=== PATIENT | female | born 1975 | race Caucasian/White ===

== ENCOUNTER 2019-02-25 12:02 | Inpatient (IN) | payer OTHER ==
[2019-02-25 14:26] VITALS: BMI 23.6
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
[2019-02-25] MEDS ORDERED: IBUPROFEN 400 MG TABLET (FP) PO PRN (17:03)
[2019-02-25] MEDS ORDERED: LOPERAMIDE HCL 2 MG CAPSULE PO PRN (17:03)
[2019-02-25] MEDS ORDERED: MENTHOL/PHENOL 1 EACH UD MM PRN (17:03)
[2019-02-25] MEDS ORDERED: MAGNESIUM CITRATE 300 ML BOTTLE PO PRN (17:03)
[2019-02-25] MEDS ORDERED: ACETAMINOPHEN 325 MG TABLET (FP) PO PRN (17:03)
[2019-02-25] MEDS ORDERED: P-EPHED 60MG/TRIPROLIDI 2.5MG TABLET PO PRN (17:03)
[2019-02-25] MEDS ORDERED: MAG HYDROX/AL HYDROX/SIMETH 30 ML UNIT-DOSE CUP PO PRN (17:03)
[2019-02-25] MEDS ORDERED: guaiFENesin 200 MG/10 ML 10 ML UNIT-DOSE CUPS PO PRN (17:03)
[2019-02-25] MEDS: THIAMINE HCL 100 MG TABLET (FP) PO SCH (21:25)
[2019-02-25] MEDS: hydrOXYzine PAMOATE 25 MG CAPSULE (FP) PO PRN (21:25)
[2019-02-26] MEDS: PRENATAL VITAMINS W/ FOLIC ACID TABLET (FP) PO SCH (09:40)
[2019-02-26] MEDS ORDERED: PT OWN MED DRAWER 7, Y5N ONE (11:01)
[2019-02-26 11:39] LABS: HEMATOCRIT 31.4 % (32.4-45.2); HEMOGLOBIN 10.3 GM/dL (10.7-15.3); MCH 30.6 pg (25.7-33.7); MCHC 32.8 g/dl (32.0-36.0); MEAN CELL VOLUME 93.3 fl (80-96); MEAN PLT VOLUME 8.8 fl (7.5-11.1); PLATELET COUNT 195 K/MM3 (134-434); RBC 3.36 M/mm3 (3.60-5.2); WHITE BLOOD COUNT 5.8 K/mm3 (4.0-10.0)
[2019-02-26 12:07] LABS: ALBUMIN 3.4 g/dl (3.4-5.0); BILIRUBIN,TOTAL 0.5 mg/dL (0.2-1); CALCIUM 9.1 mg/dL (8.5-10.1); CREATININE 0.5 mg/dL (0.55-1.3); POTASSIUM 4.3 mmol/L (3.5-5.1); TOT PROT 6.7 g/dl (6.4-8.2)
[2019-02-26 14:32] LABS: PH,URINE 5.5 (5.0-8.0); URINE APPEARANCE CLEAR; URINE BILIRUBIN NEGATIVE (NEGATIVE); URINE COLOR YELLOW; URINE GLUCOSE (UA) NEGATIVE (NEGATIVE); URINE KETONE NEGATIVE (NEGATIVE); URINE LEUK ESTERASE NEGATIVE (NEGATIVE); URINE NITRITE NEGATIVE (NEGATIVE); URINE PROTEIN NEGATIVE (NEGATIVE); URINE UROBILINOGEN 0.2 mg/dL (0.2-1.0)
[2019-02-26] MEDS: THIAMINE HCL 100 MG TABLET (FP) PO SCH (21:24)
[2019-02-26] MEDS: MELATONIN 5 MG TABLETS PO PRN (21:25)
[2019-02-27] MEDS: PRENATAL VITAMINS W/ FOLIC ACID TABLET (FP) PO SCH (09:38)
--- NOTE | 2019-02-27 09:45 | PN ---
[facility] Progress Note Note: Vital Signs Temperature 98.1 F 02/27/19 06:56 Pulse Rate 55 L 02/27/19 06:56 Respiratory Rate 16 02/27/19 06:56 Blood Pressure 102/69 02/27/19 06:56 O2 Sat by Pulse Oximetry (%) Laboratory Last Values WBC 5.8 K/mm3 (4.0-10.0) 02/26/19 08:55 RBC 3.36 M/mm3 (3.60-5.2) L 02/26/19 08:55 Hgb 10.3 GM/dL (10.7-15.3) L 02/26/19 08:55 Hct 31.4 % (32.4-45.2) L 02/26/19 08:55 MCV 93.3 fl (80-96) 02/26/19 08:55 MCH 30.6 pg (25.7-33.7) 02/26/19 08:55 MCHC 32.8 g/dl (32.0-36.0) 02/26/19 08:55 RDW 14.0 % (11.6-15.6) 02/26/19 08:55 Plt Count 195 K/MM3 (134-434) D 02/26/19 08:55 MPV 8.8 fl (7.5-11.1) 02/26/19 08:55 Sodium 136 mmol/L (136-145) 02/26/19 08:55 Potassium 4.3 mmol/L (3.5-5.1) 02/26/19 08:55 Chloride 104 mmol/L (98-107) 02/26/19 08:55 Carbon Dioxide 28 mmol/L (21-32) 02/26/19 08:55 Anion Gap 4 MMOL/L (8-16) L 02/26/19 08:55 BUN 13 mg/dL (7-18) 02/26/19 08:55 Creatinine 0.5 mg/dL (0.55-1.3) L 02/26/19 08:55 Est GFR (CKD-EPI)AfAm 137.39 02/26/19 08:55 Est GFR (CKD-EPI)NonAf 118.54 02/26/19 08:55 Random Glucose 82 mg/dL (74-106) 02/26/19 08:55 Calcium 9.1 mg/dL (8.5-10.1) 02/26/19 08:55 Total Bilirubin 0.5 mg/dL (0.2-1) 02/26/19 08:55 AST 16 U/L (15-37) 02/26/19 08:55 ALT 30 U/L (13-61) 02/26/19 08:55 Alkaline Phosphatase 58 U/L (45-117) 02/26/19 08:55 Total Protein 6.7 g/dl (6.4-8.2) 02/26/19 08:55 Albumin 3.4 g/dl (3.4-5.0) 02/26/19 08:55 Urine Color Yellow 02/26/19 09:30 Urine Appearance Clear 02/26/19 09:30 Urine pH 5.5 (5.0-8.0) D 02/26/19 09:30 Ur Specific [place] 1.009 (1.010-1.035) L 02/26/19 09:30 Urine Protein Negative (NEGATIVE) 02/26/19 09:30 Urine Glucose (UA) Negative (NEGATIVE) 02/26/19 09:30 Urine Ketones Negative (NEGATIVE) 02/26/19 09:30 Urine Blood Negative (NEGATIVE) 02/26/19 09:30 Urine Nitrite Negative (NEGATIVE) 02/26/19 09:30 Urine Bilirubin Negative (NEGATIVE) 02/26/19 09:30 Urine Urobilinogen 0.2 mg/dL (0.2-1.0) 02/26/19 09:30 Ur Leukocyte Esterase Negative (NEGATIVE) 02/26/19 09:30 POC Urine HCG, Qual Negative 02/25/19 08:40 RPR Titer Nonreactive (NONREACTIVE) 02/26/19 08:55 labs reviewed patient stable continue to monitor
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
[2019-02-27] MEDS: THIAMINE HCL 100 MG TABLET (FP) PO SCH (21:30)
[2019-02-27] MEDS ORDERED: SUVOREXANT 10 MG TABLET PO PRN (22:00)
[2019-02-28] MEDS: PRENATAL VITAMINS W/ FOLIC ACID TABLET (FP) PO SCH (09:42)
--- NOTE | 2019-02-28 12:59 | PN ---
[facility] Progress Note Note: NURSE JASON REPORTED TO TRANSCRIPT CLERK THAT PT EXPRESSED POSSIBILITY OF "HURTING HERSELF" TO THE NA [place] WHILE SHE MADE ROUNDS. NA REPORTS PATIENT WAS CRYING AND RESPONDED TO HER WITH THE ABOVE COMMENT. PT WAS SEEN BY TRANSCRIPT CLERK AND NURSE JASON SITTING ON A CHAIR IN ROOM. PT WAS INTERMITTENTLY SOBBING, RESTLESS AND ANXIOUS ABOUT NOT WANTING TO BE HERE BUT WANTS TO COMPLETE TREATMENT. PT WAS VERY AGITATED,RESTLESS AND ANXIOUS. PT SAYS SHE STOPPED TAKING HER LITHIUM OVER A MONTH AGO BECAUSE WAS USING DRUGS AND DOES NOT TAKE HER MEDICATIONS "WHEN USING". AND THAT SHE KNOWS WHEN SHE GETS STARTED "IT WILL TAKE TIME TO KICK IN" . "I JUST WANT TO TAKE MY MEDICATIONS". PT IS ALERT O X 3. RECANTED EXPRESSION OF HURTING HERSELF DENYING ANY DESIRE TO HURT HERSELF WHEN ASKED AGAIN BY NURSE JASON AND THIS TRANSCRIPT CLERK. PT WAS SEEN YESTERDAY BYPSYCH CONSULT, DR BECKHAM. LITHIUM LEVEL ORDERED AND DRAWN TODAY. Vital Signs - 24 hr 02/28/19 02/28/19 02/28/19 00:30 03:30 06:48 Temperature 98.4 F Pulse Rate 58 L Respiratory 16 16 18 Rate Blood Pressure 111/74 Laboratory Tests 02/25/19 02/26/19 02/26/19 08:40 08:55 08:55 WBC 5.8 RBC 3.36 L Hgb 10.3 L Hct 31.4 L MCV 93.3 MCH 30.6 MCHC 32.8 RDW 14.0 Plt Count 195 D MPV 8.8 Sodium 136 Potassium 4.3 Chloride 104 Carbon Dioxide 28 Anion Gap 4 L BUN 13 Creatinine 0.5 L Est GFR (CKD-EPI)AfAm 137.39 Est GFR (CKD-EPI)NonAf 118.54 Random Glucose 82 Calcium 9.1 Total Bilirubin 0.5 AST 16 ALT 30 Alkaline Phosphatase 58 Total Protein 6.7 Albumin 3.4 Urine Color Urine Appearance Urine pH Ur Specific [place] Urine Protein Urine Glucose (UA) Urine Ketones Urine Blood Urine Nitrite Urine Bilirubin Urine Urobilinogen Ur Leukocyte Esterase POC Urine HCG, Qual Negative RPR Titer 02/26/19 02/26/19 08:55 09:30 WBC RBC Hgb Hct MCV MCH MCHC RDW Plt Count MPV Sodium Potassium Chloride Carbon Dioxide Anion Gap BUN Creatinine Est GFR (CKD-EPI)AfAm Est GFR (CKD-EPI)NonAf Random Glucose Calcium Total Bilirubin AST ALT Alkaline Phosphatase Total Protein Albumin Urine Color Yellow Urine Appearance Clear Urine pH 5.5 D Ur Specific [place] 1.009 L Urine Protein Negative Urine Glucose (UA) Negative Urine Ketones Negative Urine Blood Negative Urine Nitrite Negative Urine Bilirubin Negative Urine Urobilinogen 0.2 Ur Leukocyte Esterase Negative POC Urine HCG, Qual RPR Titer Nonreactive LITHIUM LEVEL RESULT PENDING. PLAN:PT WILL BE ON 1:1 UNTIL PSYCH CONSULT SEES PT AND CLEARS PT. D/W PSYCH CONSULT DR. ALAN AND WILL SEE PT. ADDENDUM:PT WAS SEEN AND CLEARED BY DR. ALAN(SEE PSYCH CONSULT NOTE).
--- NOTE | 2019-02-28 13:34 | PN ---
Psychiatric Progress Note Vital Signs: Vital Signs Period Temp Pulse Resp BP Sys/Topete Pulse Ox Last 24 Hr 98.4 F 58 16-18 111/74 Date of Session: 02/28/19 Chief Complaint:: Suicidal ideations HPI: Patient with history of Bipolar Disorder, PTSD and alcohol use admitted on 02/25/19 for inpatient rehabilitation. She was seen by Dr Campos on 01/27/19 and she was started on Belsomra 10 mg/hs. Reportedly, she was on Wellbutrin, lithium and latuda and stopped taking them over a omnoth ago. She told dr Campos that she does not take medication when she drinks. Requested to see patient today because of suicidal ideations. apparently, she was observed by unit tech crying while in her room and when inquired for motive of her crying, she responded she does want to live anymore. She subsequently retracted her statement when confronted by nursing staff and DAMAGE ASSESSOR. She was placed on 1:1 and psychiatric assessment was requested to evaluate patient for suicidality Current Medications: Active Medications Generic Name Dose Route Start Last Admin Trade Name Freq PRN Reason Stop Dose Admin Acetaminophen 650 mg 02/25/19 17:03 Tylenol - PO Q4H PRN FEVER Al Hydroxide/Mg Hydroxide 30 ml 02/25/19 17:03 Mylanta Oral Suspension - PO Q6H PRN DYSPEPSIA Bupropion HCl 150 mg 02/28/19 13:30 Wellbutrin Xl - PO DAILY SAMANTHA Eucalyptus/Menthol/Phenol/Sorbitol 1 each 02/25/19 17:03 Cepastat Lozenge - MM Q4H PRN SORE THROAT Guaifenesin 10 ml 02/25/19 17:03 Robitussin - PO Q6H PRN COUGH Hydroxyzine Pamoate 25 mg 02/25/19 17:03 02/25/19 21:25 Vistaril - PO 25 mg Q4H PRN Administration AGITATION Ibuprofen 400 mg 02/25/19 17:03 Motrin - PO Q6H PRN Pain level 4-6 Loperamide HCl 4 mg 02/25/19 17:03 Imodium - PO Q6H PRN DIARRHEA Lurasidone HCl 40 mg 02/28/19 13:30 Latuda - PO DAILY SAMANTHA Magnesium Citrate 300 ml 02/25/19 17:03 Citroma - PO Q48H PRN CONSTIPATION Magnesium Hydroxide 30 ml 02/25/19 17:03 Milk Of Magnesia - PO DAILY PRN CONSTIPATION Melatonin 5 mg 02/25/19 22:00 02/26/19 21:25 Melatonin PO 5 mg HS PRN Administration INSOMNIA Non-Formulary Medication 1 each 02/26/19 10:00 02/28/19 09:42 Norgestimate-Ethinyl Estradiol [Ortho-Cyclen 28 Tablet] PO 1 each DAILY SAMANTHA Administration Pseudoephedrine/Triprolidine 1 combo 02/25/19 17:03 Actifed - PO TID PRN NASAL CONGESTION Suvorexant 15 mg 02/28/19 22:00 Belsomra PO HS PRN INSOMNIA Thiamine HCl 100 mg 02/25/19 22:00 02/27/19 21:30 Vitamin B1 - PO 100 mg HS SAMANTHA Administration Medication(s) Change(s): Start Welbutrin XL 150 mg/day and Latuda 40 mg/day Current Side Effect: No Lab tests ordered: Yes Provider note:: Dr Campos' note read and appreciated and patient seen in the office. She acknowledges feeling depressed and denies at first teling anyone feeling suicidal. When made comfortable and treated with empathy, She admitted telling the unit tech feeling that way. She told rfp writer that she did not really feel suicidal and said that as a cry for help. She denies feeling suicidal during the examination. Told rfp writer that she was doing well on her medication and stopped them over a month ago when she relapsed. She said she knows that it is going to take some time for medication to be effective but would like to resume taking them as soon as possible. She told rfp writer she does not know dosage of her medications and she contacted her boyfriend in order for him to go to her apartment for verification of her medication since she has the bottles there. She is able to verbally contract with rfp writer to let staff know about any bad feelings she may have espacially suicidal ones Total face to face time:: 45 Mental Status Exam - Mental Status Exam Alert and Oriented to: Time, Place, Person Cognitive Function: Fair Patient Appearance: Well Groomed Mood: Depressed Affect: Appropriate Patient Behavior: Cooperative Speech Pattern: Clear Voice Loudness: Normal Thought Process: Intact, Goal Oriented Thought Disorder: Not Present Hallucinations: Denies Suicidal Ideation: Denies Homicidal Ideation: Denies Insight/Judgement: Fair Sleep: Poorly Appetite: Fair Muscle strength/Tone: Normal Gait/Station: Normal Psychiatric Treatment Plan - Problem List (1) Bipolar disorder Current Visit: No Comment: By history. (2) Post traumatic stress disorder (PTSD) Current Visit: No Comment: By history. (3) Alcohol-induced mood disorder Current Visit: No (4) Alcohol-induced sleep disorder Current Visit: Yes (5) Alcohol dependence Current Visit: Yes Initial treatment plan: 1) Start Wellbutrin XL 150 mg po daily and Latuda 40 mg po daily pending verification. 2) Continue inpatient rehabilitation
[2019-02-28] MEDS: LURASIDONE HCL 40 MG TABLET PO SCH (15:34)
[2019-02-28] MEDS: MELATONIN 5 MG TABLETS PO PRN (21:24)
[2019-02-28] MEDS: THIAMINE HCL 100 MG TABLET (FP) PO SCH (21:24)
[2019-03-01] MEDS: LURASIDONE HCL 40 MG TABLET PO SCH (09:51)
--- NOTE | 2019-03-01 09:54 | PN ---
[facility] Progress Note Note: 43 years old female admitted on 02/25/19 for alcohol rehab bmi 23.7 order multivitamin
[2019-03-01] MEDS: PRENATAL VITAMINS W/ FOLIC ACID TABLET (FP) PO SCH (11:00)
[2019-03-01] MEDS: THIAMINE HCL 100 MG TABLET (FP) PO SCH (21:08)
[2019-03-01] MEDS: MELATONIN 5 MG TABLETS PO PRN (21:08)
[2019-03-01] MEDS: SUVOREXANT 15 MG TABLET PO PRN (21:09)
[2019-03-02] MEDS ORDERED: PT OWN MED DRAWER 7, Y5N ONE (08:43)
[2019-03-02] MEDS: LURASIDONE HCL 40 MG TABLET PO SCH (09:45)
[2019-03-02] MEDS: PRENATAL VITAMINS W/ FOLIC ACID TABLET (FP) PO SCH (09:45)
[2019-03-02] MEDS: THIAMINE HCL 100 MG TABLET (FP) PO SCH (21:16)
[2019-03-02] MEDS: SUVOREXANT 15 MG TABLET PO PRN (21:17)
[2019-03-02] MEDS: MELATONIN 5 MG TABLETS PO PRN (21:18)
[2019-03-03] MEDS ORDERED: PT OWN MED DRAWER 7, Y5N ONE (08:39)
[2019-03-03] MEDS: LURASIDONE HCL 40 MG TABLET PO SCH (09:59)
[2019-03-03] MEDS: PRENATAL VITAMINS W/ FOLIC ACID TABLET (FP) PO SCH (09:59)
[2019-03-03] MEDS: MELATONIN 5 MG TABLETS PO PRN (21:07)
[2019-03-03] MEDS: THIAMINE HCL 100 MG TABLET (FP) PO SCH (21:07)
[2019-03-03] MEDS: SUVOREXANT 15 MG TABLET PO PRN (21:07)
[2019-03-04] MEDS: PRENATAL VITAMINS W/ FOLIC ACID TABLET (FP) PO SCH (09:52)
[2019-03-04] MEDS: LURASIDONE HCL 40 MG TABLET PO SCH (09:53)
[2019-03-04] MEDS: MAGNESIUM HYDROX 2400MG/30ML ORAL SUSPENSION 30 ML CUP PO PRN (14:35)
[2019-03-04] MEDS: THIAMINE HCL 100 MG TABLET (FP) PO SCH (21:03)
[2019-03-04] MEDS: MELATONIN 5 MG TABLETS PO PRN (21:03)
[2019-03-04] MEDS: hydrOXYzine PAMOATE 25 MG CAPSULE (FP) PO PRN (21:03)
[2019-03-04] MEDS ORDERED: SUVOREXANT 10 MG TABLET PO PRN (22:00)
[2019-03-05] MEDS: PRENATAL VITAMINS W/ FOLIC ACID TABLET (FP) PO SCH (09:43)
[2019-03-05] MEDS: LURASIDONE HCL 40 MG TABLET PO SCH (09:43)
--- NOTE | 2019-03-05 10:36 | PN ---
Psychiatric Progress Note Vital Signs: Vital Signs Period Temp Pulse Resp BP Sys/Topete Pulse Ox Last 24 Hr 98.1 F 85 16-16 93/63 Date of Session: 03/05/19 Chief Complaint:: "I have bad insomnia." HPI: Patient reports insomnia (reports sleeping two hours per night) and anxiety throughout the day. ROS: Patient with a history of alcohol dependence co-morbid with bipolar disorder + post-traumatic stress disorder. Patient is coherent, alert and oriented X3. Current Medications: Active Medications Generic Name Dose Route Start Last Admin Trade Name Freq PRN Reason Stop Dose Admin Acetaminophen 650 mg 02/25/19 17:03 Tylenol - PO Q4H PRN FEVER Al Hydroxide/Mg Hydroxide 30 ml 02/25/19 17:03 Mylanta Oral Suspension - PO Q6H PRN DYSPEPSIA Bupropion HCl 150 mg 02/28/19 14:15 03/05/19 09:43 Wellbutrin Xl - PO 150 mg DAILY SAMANTHA Administration Eucalyptus/Menthol/Phenol/Sorbitol 1 each 02/25/19 17:03 Cepastat Lozenge - MM Q4H PRN SORE THROAT Guaifenesin 10 ml 02/25/19 17:03 Robitussin - PO Q6H PRN COUGH Hydroxyzine Pamoate 25 mg 02/25/19 17:03 03/04/19 21:03 Vistaril - PO 25 mg Q4H PRN Administration AGITATION Ibuprofen 400 mg 02/25/19 17:03 Motrin - PO Q6H PRN Pain level 4-6 Loperamide HCl 4 mg 02/25/19 17:03 Imodium - PO Q6H PRN DIARRHEA Lurasidone HCl 40 mg 02/28/19 14:15 03/05/19 09:43 Latuda - PO 40 mg DAILY SAMANTHA Administration Magnesium Citrate 300 ml 02/25/19 17:03 Citroma - PO Q48H PRN CONSTIPATION Magnesium Hydroxide 30 ml 02/25/19 17:03 03/04/19 14:35 Milk Of Magnesia - PO 30 ml DAILY PRN Administration CONSTIPATION Melatonin 5 mg 02/25/19 22:00 03/04/19 21:03 Melatonin PO 5 mg HS PRN Administration INSOMNIA Non-Formulary Medication 1 each 02/26/19 10:00 03/05/19 09:43 Norgestimate-Ethinyl Estradiol [Ortho-Cyclen 28 Tablet] PO 1 each DAILY SAMANTHA Administration Multivit/Folic Acid/Iron 1 tab 03/01/19 10:00 03/05/19 09:43 Vitamins (Sjr) - PO 1 tab DAILY SAMANTHA Administration Pseudoephedrine/Triprolidine 1 combo 02/25/19 17:03 Actifed - PO TID PRN NASAL CONGESTION Suvorexant 10 mg 03/04/19 22:00 03/04/19 21:04 Belsomra PO 03/07/19 21:59 10 mg HS PRN Administration INSOMNIA Thiamine HCl 100 mg 02/25/19 22:00 03/04/19 21:03 Vitamin B1 - PO 100 mg HS SAMANTHA Administration Medication(s) Change(s): Yes. Current Side Effect: No Lab tests ordered: No Lab tests reviewed: Yes Provider note:: Patient reports h/o insomnia and anxiety. Dr. Campos note read and appreciated. Patient's insomnia is currently being treated with melatonin and Belsomra which patient states has been ineffective at its current dose. Patient reports past history of accepting ambien and lunesta with favorable effects but was informed by health underwriter that neither medication is prescribed in facility. Patient refusing trazodone due to her inability to function the following day when accepting trazodone and also refusing seroquel due to her history of sleeping disorder. Will d/c Belsomra 10mg + Melatonin 5mg and order Belsomra 15mg + Melatonin 10mg. Ms. Patel also reports anxiety throughout the day which is unresolved with current vistaril dose. Will d/c vistaril 25mg q4h and order vistaril 50mg q4h. Patient educated on the importance of sleep hygiene and on developing coping skills to help manage her anxiety. Patient satisifed and receptive to feedback. Benefits and side effects discussed. Verbal consent given. Total face to face time:: 25 Mental Status Exam - Mental Status Exam Alert and Oriented to: Time, Place, Person Cognitive Function: Good Patient Appearance: Well Groomed Mood: Anxious Affect: Appropriate Patient Behavior: Cooperative Speech Pattern: Appropriate Voice Loudness: Normal Thought Process: Goal Oriented Thought Disorder: Not Present Hallucinations: Denies Suicidal Ideation: Denies Homicidal Ideation: Denies Insight/Judgement: Poor Sleep: Poorly Appetite: Fair Muscle strength/Tone: Normal Gait/Station: Normal Psychiatric Treatment Plan - Problem List (1) Alcohol-induced sleep disorder Current Visit: Yes (2) Alcohol dependence Current Visit: Yes (3) History of bipolar disorder Current Visit: Yes (4) History of posttraumatic stress disorder (PTSD) Current Visit: Yes
[2019-03-05] MEDS: THIAMINE HCL 100 MG TABLET (FP) PO SCH (21:36)
[2019-03-05] MEDS: hydrOXYzine PAMOATE 25 MG CAPSULE (FP) PO PRN (21:39)
[2019-03-05] MEDS: MELATONIN 5 MG TABLETS PO PRN (21:39)
[2019-03-05] MEDS: SUVOREXANT 15 MG TABLET PO PRN (21:40)
[2019-03-06] MEDS: LURASIDONE HCL 40 MG TABLET PO SCH (09:43)
[2019-03-06] MEDS: PRENATAL VITAMINS W/ FOLIC ACID TABLET (FP) PO SCH (09:44)
[2019-03-06] MEDS: MAGNESIUM HYDROX 2400MG/30ML ORAL SUSPENSION 30 ML CUP PO PRN (15:56)
[2019-03-06] MEDS: MELATONIN 5 MG TABLETS PO PRN (21:50)
[2019-03-06] MEDS: SUVOREXANT 15 MG TABLET PO PRN (21:51)
[2019-03-06] MEDS: THIAMINE HCL 100 MG TABLET (FP) PO SCH (21:51)
[2019-03-07] MEDS: hydrOXYzine PAMOATE 25 MG CAPSULE (FP) PO PRN ×2 (02:04→21:55)
[2019-03-07] MEDS: PRENATAL VITAMINS W/ FOLIC ACID TABLET (FP) PO SCH (09:50)
[2019-03-07] MEDS: LURASIDONE HCL 40 MG TABLET PO SCH (09:51)
[2019-03-07] MEDS: THIAMINE HCL 100 MG TABLET (FP) PO SCH (21:54)
[2019-03-07] MEDS: MELATONIN 5 MG TABLETS PO PRN (21:54)
[2019-03-07] MEDS: SUVOREXANT 15 MG TABLET PO PRN (21:56)
[2019-03-08] MEDS: PRENATAL VITAMINS W/ FOLIC ACID TABLET (FP) PO SCH (09:51)
[2019-03-08] MEDS: LURASIDONE HCL 40 MG TABLET PO SCH (09:51)
[2019-03-08] MEDS ORDERED: PT OWN MED DRAWER 7, Y5N ONE (09:55)
[2019-03-08] MEDS: MAGNESIUM HYDROX 2400MG/30ML ORAL SUSPENSION 30 ML CUP PO PRN (16:44)
[2019-03-08] MEDS: THIAMINE HCL 100 MG TABLET (FP) PO SCH (21:31)
[2019-03-08] MEDS: MELATONIN 5 MG TABLETS PO PRN (21:32)
[2019-03-08] MEDS: hydrOXYzine PAMOATE 25 MG CAPSULE (FP) PO PRN (21:32)
[2019-03-08] MEDS: SUVOREXANT 15 MG TABLET PO PRN (21:32)
[2019-03-09] MEDS: LURASIDONE HCL 40 MG TABLET PO SCH (09:28)
[2019-03-09] MEDS: PRENATAL VITAMINS W/ FOLIC ACID TABLET (FP) PO SCH (09:28)
[2019-03-09] MEDS: MAGNESIUM HYDROX 2400MG/30ML ORAL SUSPENSION 30 ML CUP PO PRN (18:26)
[2019-03-09] MEDS: THIAMINE HCL 100 MG TABLET (FP) PO SCH (21:37)
[2019-03-09] MEDS: MELATONIN 5 MG TABLETS PO PRN (21:37)
[2019-03-09] MEDS: hydrOXYzine PAMOATE 25 MG CAPSULE (FP) PO PRN (21:39)
[2019-03-09] MEDS: SUVOREXANT 15 MG TABLET PO PRN (21:39)
[2019-03-10] MEDS: PRENATAL VITAMINS W/ FOLIC ACID TABLET (FP) PO SCH (09:41)
[2019-03-10] MEDS: LURASIDONE HCL 40 MG TABLET PO SCH (09:41)
[2019-03-10] MEDS: MELATONIN 5 MG TABLETS PO PRN (21:16)
[2019-03-10] MEDS: THIAMINE HCL 100 MG TABLET (FP) PO SCH (21:16)
[2019-03-10] MEDS: SUVOREXANT 15 MG TABLET PO PRN (21:18)
[2019-03-10] MEDS: hydrOXYzine PAMOATE 25 MG CAPSULE (FP) PO PRN (21:18)
[2019-03-10] MEDS ORDERED: PT OWN MED DRAWER 7, Y5N ONE (21:56)
[2019-03-11] MEDS: PRENATAL VITAMINS W/ FOLIC ACID TABLET (FP) PO SCH (10:14)
[2019-03-11] MEDS: LURASIDONE HCL 40 MG TABLET PO SCH (10:14)
[2019-03-11] MEDS: MAGNESIUM HYDROX 2400MG/30ML ORAL SUSPENSION 30 ML CUP PO PRN (13:55)
--- NOTE | 2019-03-11 16:05 | PN ---
Psychiatric Progress Note Vital Signs: Vital Signs Period Temp Pulse Resp BP Sys/Topete Pulse Ox Last 24 Hr 98.3 F 74 16-18 106/71 Date of Session: 03/11/19 Chief Complaint:: " I did not say that I want to leave the program. " HPI: Day 14 of rehabilitative care for this 43 y/o female patient addressing issues of alcohol use disorder co-morbid with bipolar disorder and PTSD. Called for psychiatric re-evaluation in response to this patient's decision to leave against medical advice. ROS: Unremarkable. Patient is cognitively intact. Ambulatory. Adherent to medications + therapy sessions. No evidence of physical distress. Current Medications: Active Medications Generic Name Dose Route Start Last Admin Trade Name Freq PRN Reason Stop Dose Admin Acetaminophen 650 mg 02/25/19 17:03 03/11/19 13:55 Tylenol - PO 650 mg Q4H PRN Administration FEVER Al Hydroxide/Mg Hydroxide 30 ml 02/25/19 17:03 Mylanta Oral Suspension - PO Q6H PRN DYSPEPSIA Bupropion HCl 150 mg 02/28/19 14:15 03/11/19 10:14 Wellbutrin Xl - PO 150 mg DAILY SAMANTHA Administration Eucalyptus/Menthol/Phenol/Sorbitol 1 each 02/25/19 17:03 Cepastat Lozenge - MM Q4H PRN SORE THROAT Guaifenesin 10 ml 02/25/19 17:03 Robitussin - PO Q6H PRN COUGH Hydroxyzine Pamoate 50 mg 03/05/19 10:50 03/10/19 21:18 Vistaril - PO 50 mg Q4H PRN Administration ANXIETY Ibuprofen 400 mg 02/25/19 17:03 Motrin - PO Q6H PRN Pain level 4-6 Loperamide HCl 4 mg 02/25/19 17:03 Imodium - PO Q6H PRN DIARRHEA Lurasidone HCl 40 mg 02/28/19 14:15 03/11/19 10:14 Latuda - PO 40 mg DAILY SAMANTHA Administration Magnesium Citrate 300 ml 02/25/19 17:03 Citroma - PO Q48H PRN CONSTIPATION Magnesium Hydroxide 30 ml 02/25/19 17:03 03/11/19 13:55 Milk Of Magnesia - PO 30 ml DAILY PRN Administration CONSTIPATION Melatonin 10 mg 03/05/19 22:00 03/10/19 21:16 Melatonin PO 10 mg HS PRN Administration INSOMNIA Non-Formulary Medication 1 each 02/26/19 10:00 03/11/19 10:16 Norgestimate-Ethinyl Estradiol [Ortho-Cyclen 28 Tablet] PO 1 each DAILY SAMANTHA Administration Multivit/Folic Acid/Iron 1 tab 03/01/19 10:00 03/11/19 10:14 Vitamins (Sjr) - PO 1 tab DAILY SAMANTHA Administration Pseudoephedrine/Triprolidine 1 combo 02/25/19 17:03 Actifed - PO TID PRN NASAL CONGESTION Suvorexant 15 mg 03/08/19 22:00 03/10/19 21:18 Belsomra PO 03/11/19 21:59 15 mg HS PRN Administration INSOMNIA Thiamine HCl 100 mg 02/25/19 22:00 03/10/19 21:16 Vitamin B1 - PO 100 mg HS SAMANTHA Administration Medication(s) Change(s): No justification for changes. Patient reports good response from the current regimen of lurasidone + wellbutrin XL and suvorexant. No adverse effects reported. Current Side Effect: No Lab tests ordered: No Lab tests reviewed: Yes Provider note:: Chart reviewed. Multidisciplinary notes are revisited. Psychiatric consult notes (Dr Mccormack + WALE Boucher) : appreciated. Labs noted. Met with patient (in the presence of Ms Liberty Blanchard, female executive director of nursing). Patient is noted as well groomed, appropriately dressed, cooperative and well-mannered. She denies the report that she was contemplating leaving AMA. " They misrepresented my words. I never said that I wanted to leave the program. On the contrary, I said that I will start using alcohol again if I leave now. That's what makes me anxious. I expect the insurance people to give me more days. I am still waiting for a word from the aids social worker." Ms Patel shows no clinical evidence of psychosis or lalo. She vehemently denies suicidal or homicidal ideation, intent or plan. Thought processes are coherent, logical and well organized. No delusion elicited. Adequate impulse control as evidenced by an uneventful hospital course (no outbursts). Patient, in this interview, has clearly verbalized her expectation to obtain an extension of length of stay at [facility] out of fear of immediate relapse into alcohol abuse. Mental status is stable at the time of this evaluation. Patient's concerns are validated. Ms Patel denies experiencing any symptom that would warrant an immediate transfer to a psychiatric institution for inpatient care. " I am anxious about my situation, which is going home and getting back to drinking, but I am not suicidal or homicidal. There is no reason for me to be sent to a psychiatric hospital." Motivational counseling and reassurance provided to the patient. Environmental Engineering Manager met with counselor Raphael who reports that " everything has been arranged for a discharge today." It is also reported that the patient will be discharged to her apartment and referred to Postgraduate outprogram (OPD setting prior to admission to [facility]). Counselor indicates that the patient was made aware of this dicharge plan. Total face to face time:: 35 Mental Status Exam - Mental Status Exam Alert and Oriented to: Time, Place, Person Cognitive Function: Good Patient Appearance: Well Groomed Mood: Nervous, Anxious Affect: Appropriate, Normal Range Patient Behavior: Appropriate, Cooperative Speech Pattern: Clear, Appropriate Voice Loudness: Normal Thought Process: Intact, Goal Oriented Thought Disorder: Not Present Hallucinations: Denies Suicidal Ideation: Denies Homicidal Ideation: Denies Insight/Judgement: Good Sleep: Well Appetite: Good Gait/Station: Normal Psychiatric Treatment Plan - Problem List (1) Alcohol dependence Current Visit: Yes Comment: . (2) History of bipolar disorder Current Visit: Yes Comment: . (3) History of posttraumatic stress disorder (PTSD) Current Visit: Yes Comment: . (4) Non-compliance Current Visit: Yes Comment: . (5) Insomnia Current Visit: Yes Comment: .
[2019-03-11] MEDS: MELATONIN 5 MG TABLETS PO PRN (21:08)
[2019-03-11] MEDS: SUVOREXANT 15 MG TABLET PO PRN (21:08)
[2019-03-11] MEDS: THIAMINE HCL 100 MG TABLET (FP) PO SCH (21:08)
[2019-03-11] MEDS: hydrOXYzine PAMOATE 25 MG CAPSULE (FP) PO PRN (21:09)
[2019-03-11] MEDS ORDERED: PT OWN MED DRAWER 7, Y5N ONE (23:12)
[2019-03-12 07:10] VITALS: BP 104/72; PULSE 72; TEMP 98
--- NOTE | 2019-03-12 08:43 | PN ---
[facility] Progress Note (SOAP) Subjective: patient to be discharged today. Objective: Medically stable for discharge. No neurological deficits noted. 03/12/19 08:39 CBC, BMP 02/26/19 08:55 02/26/19 08:55 Vital Signs (72 hours) 03/10/19 03/10/19 03/10/19 00:30 03:30 07:08 Temperature 98.1 F Pulse Rate 78 Respiratory 16 16 16 Rate Blood Pressure 90/60 03/11/19 03/11/19 03/12/19 00:30 06:56 00:30 Temperature 98.3 F Pulse Rate 74 Respiratory 16 18 17 Rate Blood Pressure 106/71 03/12/19 03/12/19 03:30 07:06 Temperature 98.0 F Pulse Rate 72 Respiratory 26 H 18 Rate Blood Pressure 104/72 03/12/19 08:42 Medically 03/12/19 08:44 Assessment: Medically stable for discharge Discharge dX: ETOH abuse. 03/12/19 08:42 03/12/19 08:44 Plan: Client will receive aftercare at the [facility] in the [place]. Prescription transmitted to pharmacy.
[2019-03-12] MEDS: PRENATAL VITAMINS W/ FOLIC ACID TABLET (FP) PO SCH (09:04)
[2019-03-12] MEDS: LURASIDONE HCL 40 MG TABLET PO SCH (09:04)
[2019-03-12] MEDS: hydrOXYzine PAMOATE 25 MG CAPSULE (FP) PO PRN (09:05)
--- NOTE | 2019-03-12 09:09 | PN ---
[facility] Progress Note Note: Psychiatric nurse practitioner note: Patient scheduled for discharge this morning. A 30 day prescription of Wellbutrin 150mg XL + Latuda 40mg daily will be electronically sent to [facility] at [address] [place] [address].
== END 2019-03-12 09:15 | disposition home or self-care (01) | DRG 772 ==
LOC: YASAS 12:02 → Y3E 17:49
PROVIDERS: ADMIT Neuromusculoskeletal Medicine & OMM; ATTEND Neuromusculoskeletal Medicine & OMM
PROC: HZ42ZZZ Group Counseling for Substance Abuse Treatment, Cognitive-Behavioral (ICD-10-PCS; principal; 2019-02-25)
DX: F10.20 Alcohol dependence, uncomplicated (principal); F10.282 Alcohol dependence with alcohol-induced sleep disorder; F10.24 Alcohol dependence with alcohol-induced mood disorder; F31.9 Bipolar disorder, unspecified; F43.10 Post-traumatic stress disorder, unspecified; G47.00 Insomnia, unspecified; R45.851 Suicidal ideations; Z91.19 Patient's noncompliance with other medical treatment and regimen
CPT/HCPCS: 36415; 80053; 80178; 81003; 81025; 85027; 86593

== ENCOUNTER 2020-10-14 12:45 | Inpatient (IN) | payer OTHER ==
[2020-10-14 14:03] VITALS: BMI 22.4
[2020-10-14] MEDS ORDERED: MAGNESIUM CITRATE 300 ML BOTTLE PO PRN (14:25)
[2020-10-14] MEDS ORDERED: MAG HYDROX/AL HYDROX/SIMETH 30 ML UNIT-DOSE CUP PO PRN (14:25)
[2020-10-14] MEDS ORDERED: ACETAMINOPHEN 325 MG TABLET (FP) PO PRN ×2 (14:25)
[2020-10-14] MEDS ORDERED: ONDANSETRON *ODT* 4 MG TABLET SL PRN (14:25)
[2020-10-14] MEDS ORDERED: MENTHOL/PHENOL 1 EACH UD MM PRN (14:25)
[2020-10-14] MEDS ORDERED: BISMUTH SUBSALICYLATE 262 MG/15 ML BTL PO PRN (14:25)
[2020-10-14] MEDS ORDERED: MAGNESIUM HYDROX 2400MG/30ML ORAL SUSPENSION 30 ML CUP PO PRN (14:25)
[2020-10-14] MEDS ORDERED: chlordiazePOXIDE HCL 25 MG CAPSULE PO PRN (14:25)
[2020-10-14 17:53] LABS: POTASSIUM 4.3 mmol/L (3.5-5.1)
[2020-10-14 17:54] LABS: HEMATOCRIT 33.3 % (32.4-45.2); MCH 29.9 pg (25.7-33.7); MCHC 33.1 g/dl (32.0-36.0); MEAN CELL VOLUME 90.4 fl (80-96); MEAN PLT VOLUME 8.9 fl (7.5-11.1); PLATELET COUNT 194 K/MM3 (134-434); RBC 3.69 M/mm3 (3.60-5.2); WHITE BLOOD COUNT 7.1 K/mm3 (4.0-10.0)
[2020-10-14 17:55] LABS: CALCIUM 9.5 mg/dL (8.5-10.1)
[2020-10-14 17:56] LABS: BLOOD UREA NITROGEN 11.7 mg/dL (7-18)
[2020-10-14 17:58] LABS: ALBUMIN 3.9 g/dl (3.4-5.0)
[2020-10-14 17:59] LABS: CREATININE 0.7 mg/dL (0.55-1.3)
[2020-10-14 18:00] LABS: BILIRUBIN,TOTAL 0.2 mg/dL (0.2-1)
[2020-10-14 18:01] LABS: TOT PROT 7.2 g/dl (6.4-8.2)
[2020-10-14] MEDS: chlordiazePOXIDE HCL 25 MG CAPSULE PO SCH ×4 (18:20→22:26)
[2020-10-14] MEDS: hydrOXYzine PAMOATE 25 MG CAPSULE (FP) PO SCH ×2 (18:20→22:26)
[2020-10-14] MEDS: THIAMINE HCL 100 MG TABLET (FP) PO SCH (22:26)
[2020-10-14] MEDS: MELATONIN 5 MG TABLETS PO SCH (22:26)
[2020-10-15] MEDS: hydrOXYzine PAMOATE 25 MG CAPSULE (FP) PO SCH ×5 (05:40→22:20)
[2020-10-15] MEDS: chlordiazePOXIDE HCL 25 MG CAPSULE PO SCH ×4 (05:40→22:17)
[2020-10-15] MEDS: PRENATAL VITAMINS W/ FOLIC ACID TABLET (FP) PO SCH (10:11)
[2020-10-15] MEDS ORDERED: LURASIDONE HCL 40 MG TABLET PO SCH (22:00)
[2020-10-15] MEDS: LURASIDONE HCL 40 MG TABLET PO SCH (22:18)
[2020-10-15] MEDS: traZODone HCL 50 MG TABLET (FP) PO SCH (22:19)
[2020-10-15] MEDS: MELATONIN 5 MG TABLETS PO SCH (22:20)
[2020-10-15] MEDS: THIAMINE HCL 100 MG TABLET (FP) PO SCH (22:20)
[2020-10-16] MEDS: chlordiazePOXIDE HCL 25 MG CAPSULE PO SCH ×4 (05:52→22:09)
[2020-10-16] MEDS: hydrOXYzine PAMOATE 25 MG CAPSULE (FP) PO SCH ×5 (05:53→22:08)
[2020-10-16] MEDS: PRENATAL VITAMINS W/ FOLIC ACID TABLET (FP) PO SCH (10:48)
[2020-10-16] MEDS: FLUoxetine HCL 20 MG CAPSULE PO SCH (10:48)
[2020-10-16] MEDS: THIAMINE HCL 100 MG TABLET (FP) PO SCH (22:08)
[2020-10-16] MEDS: MELATONIN 5 MG TABLETS PO SCH (22:08)
[2020-10-16] MEDS: traZODone HCL 50 MG TABLET (FP) PO SCH (22:08)
[2020-10-16] MEDS: LURASIDONE HCL 40 MG TABLET PO SCH (22:08)
[2020-10-17] MEDS ORDERED: chlordiazePOXIDE HCL 10 MG CAPSULE PO PRN
[2020-10-17] MEDS: METHOCARBAMOL 500 MG TABLET PO PRN ×2 (01:22→23:26)
[2020-10-17] MEDS: IBUPROFEN 400 MG TABLET (FP) PO PRN ×2 (04:22→23:26)
[2020-10-17] MEDS: hydrOXYzine PAMOATE 25 MG CAPSULE (FP) PO SCH ×5 (06:30→22:07)
[2020-10-17] MEDS: chlordiazePOXIDE HCL 10 MG CAPSULE PO SCH ×4 (06:31→22:07)
[2020-10-17] MEDS: FLUoxetine HCL 20 MG CAPSULE PO SCH (10:21)
[2020-10-17] MEDS: PRENATAL VITAMINS W/ FOLIC ACID TABLET (FP) PO SCH (10:22)
[2020-10-17] MEDS: LIDOCAINE 5% TOPICAL PATCH TP SCH (11:48)
[2020-10-17] MEDS: LURASIDONE HCL 40 MG TABLET PO SCH (22:07)
[2020-10-17] MEDS: LIDOCAINE PATCH REMOVAL MC SCH (22:08)
[2020-10-17] MEDS: MELATONIN 5 MG TABLETS PO SCH (22:08)
[2020-10-17] MEDS: THIAMINE HCL 100 MG TABLET (FP) PO SCH (22:08)
[2020-10-17] MEDS: traZODone HCL 50 MG TABLET (FP) PO SCH (22:08)
[2020-10-18] MEDS: hydrOXYzine PAMOATE 25 MG CAPSULE (FP) PO SCH ×5 (07:05→22:18)
[2020-10-18] MEDS: chlordiazePOXIDE HCL 10 MG CAPSULE PO SCH ×2 (07:05→17:45)
[2020-10-18] MEDS: LIDOCAINE 5% TOPICAL PATCH TP SCH (09:37)
[2020-10-18] MEDS: PRENATAL VITAMINS W/ FOLIC ACID TABLET (FP) PO SCH (10:17)
[2020-10-18] MEDS: FLUoxetine HCL 20 MG CAPSULE PO SCH (10:18)
[2020-10-18] MEDS ORDERED: LIDOCAINE 5% TOPICAL PATCH TP SCH (15:21)
[2020-10-18] MEDS: METHOCARBAMOL 500 MG TABLET PO PRN ×2 (15:34→22:21)
[2020-10-18] MEDS: MELATONIN 5 MG TABLETS PO SCH (22:18)
[2020-10-18] MEDS: traZODone HCL 50 MG TABLET (FP) PO SCH (22:18)
[2020-10-18] MEDS: THIAMINE HCL 100 MG TABLET (FP) PO SCH (22:18)
[2020-10-18] MEDS: LURASIDONE HCL 40 MG TABLET PO SCH (22:18)
[2020-10-18] MEDS: LIDOCAINE PATCH REMOVAL MC SCH (22:19)
[2020-10-19] MEDS ORDERED: chlordiazePOXIDE HCL 10 MG CAPSULE PO ONE (05:00)
[2020-10-19] MEDS: hydrOXYzine PAMOATE 25 MG CAPSULE (FP) PO SCH ×2 (05:24→10:36)
[2020-10-19] MEDS: METHOCARBAMOL 500 MG TABLET PO PRN (06:18)
[2020-10-19] MEDS: PRENATAL VITAMINS W/ FOLIC ACID TABLET (FP) PO SCH (10:36)
[2020-10-19] MEDS: FLUoxetine HCL 20 MG CAPSULE PO SCH (10:36)
[2020-10-19 12:56] VITALS: BP 90/61; PULSE 71; TEMP 97.8
== END 2020-10-19 01:43 | disposition other institution (70) | DRG 775 ==
LOC: YASAS 12:45 → Y6N 16:30
PROVIDERS: ADMIT Allergy & Immunology; ATTEND Allergy & Immunology
PROC: HZ2ZZZZ Detoxification Services for Substance Abuse Treatment (ICD-10-PCS; principal; 2020-10-14)
DX: F10.230 Alcohol dependence with withdrawal, uncomplicated (principal); F31.9 Bipolar disorder, unspecified; F43.10 Post-traumatic stress disorder, unspecified; G47.00 Insomnia, unspecified; M54.89 Other dorsalgia; G89.29 Other chronic pain; Z91.410 Personal history of adult physical and sexual abuse; Z86.69 Personal history of other diseases of the nervous system and sense organs; Z87.81 Personal history of (healed) traumatic fracture; Z91.5 Personal history of self-harm; Z91.011 Allergy to milk products; Z59.0 Homelessness
CPT/HCPCS: 36415; 80053; 85027; 86780; C9803; U0003

== ENCOUNTER 2020-10-19 14:17 | Inpatient (IN) | payer OTHER ==
[2020-10-19] MEDS ORDERED: LOPERAMIDE HCL 2 MG CAPSULE PO PRN (15:00)
[2020-10-19] MEDS ORDERED: IBUPROFEN 400 MG TABLET (FP) PO PRN (15:00)
[2020-10-19] MEDS ORDERED: MAGNESIUM CITRATE 300 ML BOTTLE PO PRN (15:00)
[2020-10-19] MEDS ORDERED: MAGNESIUM HYDROX 2400MG/30ML ORAL SUSPENSION 30 ML CUP PO PRN (15:00)
[2020-10-19] MEDS ORDERED: MAG HYDROX/AL HYDROX/SIMETH 30 ML UNIT-DOSE CUP PO PRN (15:00)
[2020-10-19] MEDS ORDERED: P-EPHED 60MG/TRIPROLIDI 2.5MG TABLET PO PRN (15:00)
[2020-10-19] MEDS ORDERED: guaiFENesin 200 MG/10 ML 10 ML UNIT-DOSE CUPS PO PRN (15:00)
[2020-10-19] MEDS ORDERED: MENTHOL/PHENOL 1 EACH UD MM PRN (15:00)
[2020-10-19] MEDS ORDERED: ACETAMINOPHEN 325 MG TABLET (FP) PO PRN (15:00)
[2020-10-19] MEDS: THIAMINE HCL 100 MG TABLET (FP) PO SCH (21:55)
[2020-10-19] MEDS: MELATONIN 5 MG TABLETS PO SCH (21:55)
[2020-10-19] MEDS: LURASIDONE HCL 40 MG TABLET PO SCH (21:56)
[2020-10-19] MEDS: LIDOCAINE PATCH REMOVAL MC SCH (21:56)
[2020-10-19] MEDS: traZODone HCL 50 MG TABLET (FP) PO SCH (21:56)
[2020-10-19] MEDS: hydrOXYzine PAMOATE 25 MG CAPSULE (FP) PO PRN (21:58)
[2020-10-20] MEDS: PRENATAL VITAMINS W/ FOLIC ACID TABLET (FP) PO SCH (10:18)
[2020-10-20] MEDS: ESCITALOPRAM OXALATE 20 MG TABLET PO SCH (10:18)
[2020-10-20] MEDS: LURASIDONE HCL 40 MG TABLET PO SCH ×2 (10:18→21:11)
[2020-10-20] MEDS: hydrOXYzine PAMOATE 25 MG CAPSULE (FP) PO PRN (10:18)
[2020-10-20] MEDS: LIDOCAINE 5% TOPICAL PATCH TP SCH (10:18)
[2020-10-20] MEDS ORDERED: PNEUMOCOCCAL 23 VACCINE 0.5 ML VIAL IM ONE (12:00)
[2020-10-20] MEDS ORDERED: PNEUMOC 13-VAL CONJ-DIP CRM/PF 0.5 ML DISP.SYRIN IM ONE (14:52)
[2020-10-20] MEDS: traZODone HCL 50 MG TABLET (FP) PO SCH (21:11)
[2020-10-20] MEDS: MELATONIN 5 MG TABLETS PO SCH (21:11)
[2020-10-20] MEDS: THIAMINE HCL 100 MG TABLET (FP) PO SCH (21:11)
[2020-10-20] MEDS: METHOCARBAMOL 500 MG TABLET PO PRN (21:11)
[2020-10-20] MEDS: LIDOCAINE PATCH REMOVAL MC SCH (21:12)
[2020-10-21] MEDS: PRENATAL VITAMINS W/ FOLIC ACID TABLET (FP) PO SCH (09:46)
[2020-10-21] MEDS: LURASIDONE HCL 40 MG TABLET PO SCH ×2 (09:46→21:33)
[2020-10-21] MEDS: hydrOXYzine PAMOATE 25 MG CAPSULE (FP) PO PRN ×2 (09:47→13:44)
[2020-10-21] MEDS: LIDOCAINE 5% TOPICAL PATCH TP SCH (09:47)
[2020-10-21] MEDS: ESCITALOPRAM OXALATE 20 MG TABLET PO SCH (09:47)
[2020-10-21] MEDS: METHOCARBAMOL 500 MG TABLET PO PRN ×3 (09:47→21:34)
[2020-10-21] MEDS: THIAMINE HCL 100 MG TABLET (FP) PO SCH (21:33)
[2020-10-21] MEDS: MELATONIN 5 MG TABLETS PO SCH (21:33)
[2020-10-21] MEDS: traZODone HCL 100 MG TABLET (FP) PO SCH (21:33)
[2020-10-21] MEDS: LIDOCAINE PATCH REMOVAL MC SCH (21:35)
[2020-10-22] MEDS: METHOCARBAMOL 500 MG TABLET PO PRN ×3 (07:19→21:16)
[2020-10-22] MEDS: PRENATAL VITAMINS W/ FOLIC ACID TABLET (FP) PO SCH (09:57)
[2020-10-22] MEDS: FLUoxetine HCL 20 MG CAPSULE PO SCH (09:57)
[2020-10-22] MEDS: hydrOXYzine PAMOATE 25 MG CAPSULE (FP) PO PRN (09:57)
[2020-10-22] MEDS: LIDOCAINE 5% TOPICAL PATCH TP SCH (09:58)
[2020-10-22] MEDS: MELATONIN 5 MG TABLETS PO SCH (21:15)
[2020-10-22] MEDS: THIAMINE HCL 100 MG TABLET (FP) PO SCH (21:15)
[2020-10-22] MEDS: LURASIDONE HCL 40 MG TABLET PO SCH (21:15)
[2020-10-22] MEDS: traZODone HCL 100 MG TABLET (FP) PO SCH (21:15)
[2020-10-22] MEDS: LIDOCAINE PATCH REMOVAL MC SCH (21:16)
[2020-10-23] MEDS: FLUoxetine HCL 20 MG CAPSULE PO SCH (09:51)
[2020-10-23] MEDS: PRENATAL VITAMINS W/ FOLIC ACID TABLET (FP) PO SCH (09:51)
[2020-10-23] MEDS: hydrOXYzine PAMOATE 25 MG CAPSULE (FP) PO PRN ×2 (09:51→14:19)
[2020-10-23] MEDS: METHOCARBAMOL 500 MG TABLET PO PRN ×3 (09:52→21:37)
[2020-10-23] MEDS: LIDOCAINE 5% TOPICAL PATCH TP SCH (09:53)
[2020-10-23] MEDS: FLUoxetine HCL 10 MG CAPSULE PO SCH (14:13)
[2020-10-23] MEDS: THIAMINE HCL 100 MG TABLET (FP) PO SCH (21:37)
[2020-10-23] MEDS: MELATONIN 5 MG TABLETS PO SCH (21:37)
[2020-10-23] MEDS: traZODone HCL 100 MG TABLET (FP) PO SCH (21:37)
[2020-10-23] MEDS: LIDOCAINE PATCH REMOVAL MC SCH (21:38)
[2020-10-23] MEDS: LURASIDONE HCL 40 MG TABLET PO SCH (21:38)
[2020-10-24] MEDS: PRENATAL VITAMINS W/ FOLIC ACID TABLET (FP) PO SCH (09:47)
[2020-10-24] MEDS: LIDOCAINE 5% TOPICAL PATCH TP SCH (09:47)
[2020-10-24] MEDS: hydrOXYzine PAMOATE 25 MG CAPSULE (FP) PO PRN ×2 (09:47→21:17)
[2020-10-24] MEDS: FLUoxetine HCL 10 MG CAPSULE PO SCH (09:47)
[2020-10-24] MEDS: THIAMINE HCL 100 MG TABLET (FP) PO SCH (21:17)
[2020-10-24] MEDS: METHOCARBAMOL 500 MG TABLET PO PRN (21:17)
[2020-10-24] MEDS: traZODone HCL 100 MG TABLET (FP) PO SCH (21:17)
[2020-10-24] MEDS: MELATONIN 5 MG TABLETS PO SCH (21:17)
[2020-10-24] MEDS: LURASIDONE HCL 40 MG TABLET PO SCH (21:18)
[2020-10-24] MEDS: LIDOCAINE PATCH REMOVAL MC SCH (21:18)
[2020-10-25] MEDS: METHOCARBAMOL 500 MG TABLET PO PRN ×3 (06:23→21:43)
[2020-10-25] MEDS: LIDOCAINE 5% TOPICAL PATCH TP SCH (09:40)
[2020-10-25] MEDS: hydrOXYzine PAMOATE 25 MG CAPSULE (FP) PO PRN ×2 (09:40→21:43)
[2020-10-25] MEDS: PRENATAL VITAMINS W/ FOLIC ACID TABLET (FP) PO SCH (09:40)
[2020-10-25] MEDS: FLUoxetine HCL 10 MG CAPSULE PO SCH (09:40)
[2020-10-25] MEDS: MELATONIN 5 MG TABLETS PO SCH (21:43)
[2020-10-25] MEDS: traZODone HCL 100 MG TABLET (FP) PO SCH (21:43)
[2020-10-25] MEDS: LURASIDONE HCL 40 MG TABLET PO SCH (21:43)
[2020-10-25] MEDS: THIAMINE HCL 100 MG TABLET (FP) PO SCH (21:43)
[2020-10-25] MEDS: LIDOCAINE PATCH REMOVAL MC SCH (21:44)
[2020-10-26] MEDS: LIDOCAINE 5% TOPICAL PATCH TP SCH (10:09)
[2020-10-26] MEDS: FLUoxetine HCL 10 MG CAPSULE PO SCH (10:09)
[2020-10-26] MEDS: PRENATAL VITAMINS W/ FOLIC ACID TABLET (FP) PO SCH (10:09)
[2020-10-26] MEDS: METHOCARBAMOL 500 MG TABLET PO PRN ×2 (10:09→21:14)
[2020-10-26] MEDS: hydrOXYzine PAMOATE 25 MG CAPSULE (FP) PO PRN (10:09)
[2020-10-26] MEDS: traZODone HCL 100 MG TABLET (FP) PO SCH (21:13)
[2020-10-26] MEDS: THIAMINE HCL 100 MG TABLET (FP) PO SCH (21:13)
[2020-10-26] MEDS: MELATONIN 5 MG TABLETS PO SCH (21:13)
[2020-10-26] MEDS: LURASIDONE HCL 40 MG TABLET PO SCH (21:13)
[2020-10-26] MEDS: LIDOCAINE PATCH REMOVAL MC SCH (21:14)
[2020-10-27] MEDS: PRENATAL VITAMINS W/ FOLIC ACID TABLET (FP) PO SCH (10:08)
[2020-10-27] MEDS: LIDOCAINE 5% TOPICAL PATCH TP SCH (10:08)
[2020-10-27] MEDS: FLUoxetine HCL 10 MG CAPSULE PO SCH (10:08)
[2020-10-27] MEDS: hydrOXYzine PAMOATE 25 MG CAPSULE (FP) PO PRN (10:08)
[2020-10-27] MEDS: METHOCARBAMOL 500 MG TABLET PO PRN ×2 (10:09→21:27)
[2020-10-27] MEDS: LURASIDONE HCL 40 MG TABLET PO SCH (21:26)
[2020-10-27] MEDS: traZODone HCL 100 MG TABLET (FP) PO SCH (21:26)
[2020-10-27] MEDS: THIAMINE HCL 100 MG TABLET (FP) PO SCH (21:26)
[2020-10-27] MEDS: MELATONIN 5 MG TABLETS PO SCH (21:26)
[2020-10-27] MEDS: LIDOCAINE PATCH REMOVAL MC SCH (21:28)
[2020-10-28] MEDS: PRENATAL VITAMINS W/ FOLIC ACID TABLET (FP) PO SCH (10:18)
[2020-10-28] MEDS: FLUoxetine HCL 10 MG CAPSULE PO SCH (10:19)
[2020-10-28] MEDS: LIDOCAINE 5% TOPICAL PATCH TP SCH (10:19)
[2020-10-28] MEDS: hydrOXYzine PAMOATE 25 MG CAPSULE (FP) PO PRN (10:19)
[2020-10-28] MEDS: METHOCARBAMOL 500 MG TABLET PO PRN ×2 (10:20→21:11)
[2020-10-28] MEDS: MELATONIN 5 MG TABLETS PO SCH (21:10)
[2020-10-28] MEDS: LIDOCAINE PATCH REMOVAL MC SCH (21:11)
[2020-10-28] MEDS: traZODone HCL 100 MG TABLET (FP) PO SCH (21:11)
[2020-10-28] MEDS: LURASIDONE HCL 40 MG TABLET PO SCH (21:11)
[2020-10-28] MEDS: THIAMINE HCL 100 MG TABLET (FP) PO SCH (21:11)
[2020-10-29] MEDS: PRENATAL VITAMINS W/ FOLIC ACID TABLET (FP) PO SCH (10:13)
[2020-10-29] MEDS: FLUoxetine HCL 10 MG CAPSULE PO SCH (10:13)
[2020-10-29] MEDS: LIDOCAINE 5% TOPICAL PATCH TP SCH (10:13)
[2020-10-29] MEDS: METHOCARBAMOL 500 MG TABLET PO PRN ×2 (10:14→21:42)
[2020-10-29] MEDS: FLUoxetine HCL 20 MG CAPSULE PO SCH (14:12)
[2020-10-29] MEDS: hydrOXYzine PAMOATE 25 MG CAPSULE (FP) PO PRN (14:12)
[2020-10-29] MEDS ORDERED: LURASIDONE HCL 40 MG TABLET PO SCH (17:00)
[2020-10-29] MEDS: LURASIDONE HCL 40 MG, LURASIDONE HCL 20 MG PO SCH (17:48)
[2020-10-29] MEDS: traZODone HCL 100 MG TABLET (FP) PO SCH (21:40)
[2020-10-29] MEDS: THIAMINE HCL 100 MG TABLET (FP) PO SCH (21:41)
[2020-10-29] MEDS: MELATONIN 5 MG TABLETS PO SCH (21:41)
[2020-10-29] MEDS: LIDOCAINE PATCH REMOVAL MC SCH (21:42)
[2020-10-30] MEDS: hydrOXYzine PAMOATE 25 MG CAPSULE (FP) PO PRN (10:06)
[2020-10-30] MEDS: PRENATAL VITAMINS W/ FOLIC ACID TABLET (FP) PO SCH (10:06)
[2020-10-30] MEDS: FLUoxetine HCL 20 MG CAPSULE PO SCH (10:06)
[2020-10-30] MEDS: LIDOCAINE 5% TOPICAL PATCH TP SCH (10:06)
[2020-10-30] MEDS: METHOCARBAMOL 500 MG TABLET PO PRN ×2 (10:06→21:15)
[2020-10-30] MEDS: LURASIDONE HCL 40 MG, LURASIDONE HCL 20 MG PO SCH (18:01)
[2020-10-30] MEDS: MELATONIN 5 MG TABLETS PO SCH (21:15)
[2020-10-30] MEDS: THIAMINE HCL 100 MG TABLET (FP) PO SCH (21:15)
[2020-10-30] MEDS: traZODone HCL 100 MG TABLET (FP) PO SCH (21:15)
[2020-10-30] MEDS: LIDOCAINE PATCH REMOVAL MC SCH (21:16)
[2020-10-31] MEDS: METHOCARBAMOL 500 MG TABLET PO PRN ×2 (10:24→21:18)
[2020-10-31] MEDS: PRENATAL VITAMINS W/ FOLIC ACID TABLET (FP) PO SCH (10:24)
[2020-10-31] MEDS: LIDOCAINE 5% TOPICAL PATCH TP SCH (10:25)
[2020-10-31] MEDS: FLUoxetine HCL 20 MG CAPSULE PO SCH (10:25)
[2020-10-31] MEDS: hydrOXYzine PAMOATE 25 MG CAPSULE (FP) PO PRN (14:11)
[2020-10-31] MEDS: LURASIDONE HCL 40 MG, LURASIDONE HCL 20 MG PO SCH (18:15)
[2020-10-31] MEDS: LIDOCAINE PATCH REMOVAL MC SCH (21:18)
[2020-10-31] MEDS: THIAMINE HCL 100 MG TABLET (FP) PO SCH (21:18)
[2020-10-31] MEDS: MELATONIN 5 MG TABLETS PO SCH (21:18)
[2020-10-31] MEDS: traZODone HCL 100 MG TABLET (FP) PO SCH (21:18)
[2020-11-01] MEDS: LIDOCAINE 5% TOPICAL PATCH TP SCH (10:10)
[2020-11-01] MEDS: FLUoxetine HCL 20 MG CAPSULE PO SCH (10:11)
[2020-11-01] MEDS: METHOCARBAMOL 500 MG TABLET PO PRN ×2 (10:11→21:12)
[2020-11-01] MEDS: PRENATAL VITAMINS W/ FOLIC ACID TABLET (FP) PO SCH (10:11)
[2020-11-01] MEDS: LURASIDONE HCL 40 MG, LURASIDONE HCL 20 MG PO SCH (17:54)
[2020-11-01] MEDS: THIAMINE HCL 100 MG TABLET (FP) PO SCH (21:12)
[2020-11-01] MEDS: MELATONIN 5 MG TABLETS PO SCH (21:12)
[2020-11-01] MEDS: LIDOCAINE PATCH REMOVAL MC SCH (21:12)
[2020-11-01] MEDS: traZODone HCL 100 MG TABLET (FP) PO SCH (21:12)
[2020-11-02] MEDS: PRENATAL VITAMINS W/ FOLIC ACID TABLET (FP) PO SCH (10:18)
[2020-11-02] MEDS: METHOCARBAMOL 500 MG TABLET PO PRN ×3 (10:18→21:39)
[2020-11-02] MEDS: hydrOXYzine PAMOATE 25 MG CAPSULE (FP) PO PRN ×2 (10:18→21:40)
[2020-11-02] MEDS: LIDOCAINE 5% TOPICAL PATCH TP SCH (10:19)
[2020-11-02] MEDS: FLUoxetine HCL 20 MG CAPSULE PO SCH (10:19)
[2020-11-02] MEDS: LURASIDONE HCL 40 MG, LURASIDONE HCL 20 MG PO SCH (17:22)
[2020-11-02] MEDS: THIAMINE HCL 100 MG TABLET (FP) PO SCH (21:39)
[2020-11-02] MEDS: traZODone HCL 100 MG TABLET (FP) PO SCH (21:39)
[2020-11-02] MEDS: MELATONIN 5 MG TABLETS PO SCH (21:39)
[2020-11-02] MEDS: LIDOCAINE PATCH REMOVAL MC SCH (21:40)
[2020-11-03] MEDS: hydrOXYzine PAMOATE 25 MG CAPSULE (FP) PO PRN (09:56)
[2020-11-03] MEDS: METHOCARBAMOL 500 MG TABLET PO PRN ×2 (09:56→21:14)
[2020-11-03] MEDS: FLUoxetine HCL 20 MG CAPSULE PO SCH (09:56)
[2020-11-03] MEDS: PRENATAL VITAMINS W/ FOLIC ACID TABLET (FP) PO SCH (09:56)
[2020-11-03] MEDS: LIDOCAINE 5% TOPICAL PATCH TP SCH (09:56)
[2020-11-03] MEDS: LURASIDONE HCL 40 MG, LURASIDONE HCL 20 MG PO SCH (17:09)
[2020-11-03] MEDS: THIAMINE HCL 100 MG TABLET (FP) PO SCH (21:14)
[2020-11-03] MEDS: MELATONIN 5 MG TABLETS PO SCH (21:14)
[2020-11-03] MEDS: traZODone HCL 100 MG TABLET (FP) PO SCH (21:14)
[2020-11-03] MEDS: LIDOCAINE PATCH REMOVAL MC SCH (21:15)
[2020-11-04] MEDS: hydrOXYzine PAMOATE 25 MG CAPSULE (FP) PO PRN (10:03)
[2020-11-04] MEDS: PRENATAL VITAMINS W/ FOLIC ACID TABLET (FP) PO SCH (10:03)
[2020-11-04] MEDS: LIDOCAINE 5% TOPICAL PATCH TP SCH (10:03)
[2020-11-04] MEDS: FLUoxetine HCL 20 MG CAPSULE PO SCH (10:03)
[2020-11-04] MEDS: METHOCARBAMOL 500 MG TABLET PO PRN ×2 (10:04→21:31)
[2020-11-04] MEDS: LURASIDONE HCL 40 MG, LURASIDONE HCL 20 MG PO SCH (17:27)
[2020-11-04] MEDS: LIDOCAINE PATCH REMOVAL MC SCH (21:31)
[2020-11-04] MEDS: MELATONIN 5 MG TABLETS PO SCH (21:31)
[2020-11-04] MEDS: traZODone HCL 100 MG TABLET (FP) PO SCH (21:31)
[2020-11-04] MEDS: THIAMINE HCL 100 MG TABLET (FP) PO SCH (21:31)
[2020-11-05] MEDS: PRENATAL VITAMINS W/ FOLIC ACID TABLET (FP) PO SCH (10:45)
[2020-11-05] MEDS: LIDOCAINE 5% TOPICAL PATCH TP SCH (10:45)
[2020-11-05] MEDS: hydrOXYzine PAMOATE 25 MG CAPSULE (FP) PO PRN (10:45)
[2020-11-05] MEDS: FLUoxetine HCL 20 MG CAPSULE PO SCH (10:45)
[2020-11-05] MEDS: METHOCARBAMOL 500 MG TABLET PO PRN (10:51)
[2020-11-05] MEDS: LURASIDONE HCL 40 MG, LURASIDONE HCL 20 MG PO SCH (17:15)
[2020-11-05] MEDS: MELATONIN 5 MG TABLETS PO SCH (23:03)
[2020-11-05] MEDS: THIAMINE HCL 100 MG TABLET (FP) PO SCH (23:03)
[2020-11-05] MEDS: LIDOCAINE PATCH REMOVAL MC SCH (23:03)
[2020-11-05] MEDS: traZODone HCL 100 MG TABLET (FP) PO SCH (23:03)
[2020-11-06] MEDS: PRENATAL VITAMINS W/ FOLIC ACID TABLET (FP) PO SCH (10:53)
[2020-11-06] MEDS: FLUoxetine HCL 20 MG CAPSULE PO SCH (10:53)
[2020-11-06] MEDS: hydrOXYzine PAMOATE 25 MG CAPSULE (FP) PO PRN (10:53)
[2020-11-06] MEDS: LIDOCAINE 5% TOPICAL PATCH TP SCH (10:54)
[2020-11-06] MEDS: METHOCARBAMOL 500 MG TABLET PO PRN (10:54)
[2020-11-06] MEDS: LURASIDONE HCL 40 MG, LURASIDONE HCL 20 MG PO SCH (17:51)
[2020-11-06] MEDS: THIAMINE HCL 100 MG TABLET (FP) PO SCH (21:50)
[2020-11-06] MEDS: traZODone HCL 100 MG TABLET (FP) PO SCH (21:50)
[2020-11-06] MEDS: MELATONIN 5 MG TABLETS PO SCH (21:50)
[2020-11-06] MEDS: LIDOCAINE PATCH REMOVAL MC SCH (21:51)
[2020-11-07] MEDS: PRENATAL VITAMINS W/ FOLIC ACID TABLET (FP) PO SCH (10:17)
[2020-11-07] MEDS: hydrOXYzine PAMOATE 25 MG CAPSULE (FP) PO PRN ×2 (10:17→21:19)
[2020-11-07] MEDS: METHOCARBAMOL 500 MG TABLET PO PRN ×2 (10:17→21:20)
[2020-11-07] MEDS: FLUoxetine HCL 20 MG CAPSULE PO SCH (10:17)
[2020-11-07] MEDS: LIDOCAINE 5% TOPICAL PATCH TP SCH (10:18)
[2020-11-07] MEDS: LURASIDONE HCL 40 MG TABLET PO SCH (18:19)
[2020-11-07] MEDS: traZODone HCL 100 MG TABLET (FP) PO SCH (21:19)
[2020-11-07] MEDS: LIDOCAINE PATCH REMOVAL MC SCH (21:19)
[2020-11-07] MEDS: THIAMINE HCL 100 MG TABLET (FP) PO SCH (21:19)
[2020-11-07] MEDS: MELATONIN 5 MG TABLETS PO SCH (21:19)
[2020-11-08] MEDS: PRENATAL VITAMINS W/ FOLIC ACID TABLET (FP) PO SCH (10:12)
[2020-11-08] MEDS: FLUoxetine HCL 20 MG CAPSULE PO SCH (10:12)
[2020-11-08] MEDS: hydrOXYzine PAMOATE 25 MG CAPSULE (FP) PO PRN (10:12)
[2020-11-08] MEDS: LIDOCAINE 5% TOPICAL PATCH TP SCH (10:13)
[2020-11-08] MEDS: METHOCARBAMOL 500 MG TABLET PO PRN ×2 (10:14→21:38)
[2020-11-08] MEDS: LURASIDONE HCL 40 MG TABLET PO SCH (16:28)
[2020-11-08] MEDS: MELATONIN 5 MG TABLETS PO SCH (21:37)
[2020-11-08] MEDS: THIAMINE HCL 100 MG TABLET (FP) PO SCH (21:37)
[2020-11-08] MEDS: traZODone HCL 100 MG TABLET (FP) PO SCH (21:38)
[2020-11-08] MEDS: LIDOCAINE PATCH REMOVAL MC SCH (21:38)
[2020-11-09] MEDS: PRENATAL VITAMINS W/ FOLIC ACID TABLET (FP) PO SCH (10:06)
[2020-11-09] MEDS: hydrOXYzine PAMOATE 25 MG CAPSULE (FP) PO PRN (10:06)
[2020-11-09] MEDS: FLUoxetine HCL 20 MG CAPSULE PO SCH (10:06)
[2020-11-09] MEDS: LIDOCAINE 5% TOPICAL PATCH TP SCH (10:07)
[2020-11-09] MEDS: METHOCARBAMOL 500 MG TABLET PO PRN (10:07)
[2020-11-09] MEDS: LURASIDONE HCL 40 MG TABLET PO SCH (17:26)
[2020-11-09] MEDS: traZODone HCL 100 MG TABLET (FP) PO SCH (22:32)
[2020-11-09] MEDS: THIAMINE HCL 100 MG TABLET (FP) PO SCH (22:33)
[2020-11-09] MEDS: LIDOCAINE PATCH REMOVAL MC SCH (22:33)
[2020-11-09] MEDS: MELATONIN 5 MG TABLETS PO SCH (22:33)
[2020-11-10] MEDS ORDERED: MASKS NR ONE (06:06)
[2020-11-10] MEDS: PRENATAL VITAMINS W/ FOLIC ACID TABLET (FP) PO SCH (10:21)
[2020-11-10] MEDS: hydrOXYzine PAMOATE 25 MG CAPSULE (FP) PO PRN ×2 (10:21→21:31)
[2020-11-10] MEDS: FLUoxetine HCL 20 MG CAPSULE PO SCH (10:22)
[2020-11-10] MEDS: LIDOCAINE 5% TOPICAL PATCH TP SCH (10:22)
[2020-11-10] MEDS: LURASIDONE HCL 40 MG TABLET PO SCH (17:25)
[2020-11-10] MEDS: traZODone HCL 100 MG TABLET (FP) PO SCH (21:31)
[2020-11-10] MEDS: METHOCARBAMOL 500 MG TABLET PO PRN (21:31)
[2020-11-10] MEDS: MELATONIN 5 MG TABLETS PO SCH (21:31)
[2020-11-10] MEDS: THIAMINE HCL 100 MG TABLET (FP) PO SCH (21:31)
[2020-11-10] MEDS: LIDOCAINE PATCH REMOVAL MC SCH (21:32)
[2020-11-11] MEDS: LIDOCAINE 5% TOPICAL PATCH TP SCH (10:19)
[2020-11-11] MEDS: PRENATAL VITAMINS W/ FOLIC ACID TABLET (FP) PO SCH (10:20)
[2020-11-11] MEDS: FLUoxetine HCL 20 MG CAPSULE PO SCH (10:20)
[2020-11-11] MEDS ORDERED: PT OWN MED DRAWER 7, Y5N ONE (11:25)
[2020-11-11] MEDS: LURASIDONE HCL 40 MG TABLET PO SCH (16:37)
[2020-11-11] MEDS: MELATONIN 5 MG TABLETS PO SCH (21:24)
[2020-11-11] MEDS: traZODone HCL 100 MG TABLET (FP) PO SCH (21:25)
[2020-11-11] MEDS: THIAMINE HCL 100 MG TABLET (FP) PO SCH (21:25)
[2020-11-11] MEDS: LIDOCAINE PATCH REMOVAL MC SCH (21:25)
[2020-11-12] MEDS: PRENATAL VITAMINS W/ FOLIC ACID TABLET (FP) PO SCH (09:52)
[2020-11-12] MEDS: LIDOCAINE 5% TOPICAL PATCH TP SCH (09:53)
[2020-11-12] MEDS: hydrOXYzine PAMOATE 25 MG CAPSULE (FP) PO PRN ×2 (09:54→21:22)
[2020-11-12] MEDS: FLUoxetine HCL 20 MG CAPSULE PO SCH (09:54)
[2020-11-12] MEDS ORDERED: PT OWN MED DRAWER 7, Y5N ONE (16:58)
[2020-11-12] MEDS: LURASIDONE HCL 40 MG TABLET PO SCH (17:25)
[2020-11-12] MEDS: THIAMINE HCL 100 MG TABLET (FP) PO SCH (21:22)
[2020-11-12] MEDS: LIDOCAINE PATCH REMOVAL MC SCH (21:22)
[2020-11-12] MEDS: traZODone HCL 100 MG TABLET (FP) PO SCH (21:22)
[2020-11-12] MEDS: MELATONIN 5 MG TABLETS PO SCH (21:22)
[2020-11-13] MEDS: LIDOCAINE 5% TOPICAL PATCH TP SCH (10:31)
[2020-11-13] MEDS: PRENATAL VITAMINS W/ FOLIC ACID TABLET (FP) PO SCH (10:32)
[2020-11-13] MEDS: FLUoxetine HCL 20 MG CAPSULE PO SCH (10:32)
[2020-11-13] MEDS ORDERED: PT OWN MED DRAWER 7, Y5N ONE (16:47)
[2020-11-13] MEDS: LURASIDONE HCL 40 MG TABLET PO SCH (16:57)
[2020-11-13] MEDS: THIAMINE HCL 100 MG TABLET (FP) PO SCH (21:22)
[2020-11-13] MEDS: MELATONIN 5 MG TABLETS PO SCH (21:22)
[2020-11-13] MEDS: hydrOXYzine PAMOATE 25 MG CAPSULE (FP) PO PRN (21:23)
[2020-11-13] MEDS: traZODone HCL 100 MG TABLET (FP) PO SCH (21:23)
[2020-11-13] MEDS: LIDOCAINE PATCH REMOVAL MC SCH (21:23)
[2020-11-14] MEDS: FLUoxetine HCL 20 MG CAPSULE PO SCH (10:07)
[2020-11-14] MEDS: PRENATAL VITAMINS W/ FOLIC ACID TABLET (FP) PO SCH (10:08)
[2020-11-14] MEDS: LIDOCAINE 5% TOPICAL PATCH TP SCH (10:09)
[2020-11-14] MEDS ORDERED: PT OWN MED DRAWER 7, Y5N ONE (17:09)
[2020-11-14] MEDS: LURASIDONE HCL 40 MG TABLET PO SCH (17:27)
[2020-11-14] MEDS: LIDOCAINE PATCH REMOVAL MC SCH (21:22)
[2020-11-14] MEDS: THIAMINE HCL 100 MG TABLET (FP) PO SCH (21:23)
[2020-11-14] MEDS: traZODone HCL 100 MG TABLET (FP) PO SCH (21:23)
[2020-11-14] MEDS: hydrOXYzine PAMOATE 25 MG CAPSULE (FP) PO PRN (21:23)
[2020-11-14] MEDS: MELATONIN 5 MG TABLETS PO SCH (21:23)
[2020-11-15] MEDS: PRENATAL VITAMINS W/ FOLIC ACID TABLET (FP) PO SCH (10:11)
[2020-11-15] MEDS: FLUoxetine HCL 20 MG CAPSULE PO SCH (10:11)
[2020-11-15] MEDS: LIDOCAINE 5% TOPICAL PATCH TP SCH (10:12)
[2020-11-15] MEDS: LURASIDONE HCL 40 MG TABLET PO SCH (18:07)
[2020-11-15] MEDS ORDERED: PT OWN MED DRAWER 7, Y5N ONE (18:08)
[2020-11-15] MEDS: traZODone HCL 100 MG TABLET (FP) PO SCH (21:31)
[2020-11-15] MEDS: MELATONIN 5 MG TABLETS PO SCH (21:31)
[2020-11-15] MEDS: THIAMINE HCL 100 MG TABLET (FP) PO SCH (21:31)
[2020-11-15] MEDS: LIDOCAINE PATCH REMOVAL MC SCH (21:32)
[2020-11-16 06:41] VITALS: BP 109/75; PULSE 77; TEMP 98.1
[2020-11-16] MEDS: LIDOCAINE 5% TOPICAL PATCH TP SCH (10:05)
[2020-11-16] MEDS: FLUoxetine HCL 20 MG CAPSULE PO SCH (10:05)
[2020-11-16] MEDS: PRENATAL VITAMINS W/ FOLIC ACID TABLET (FP) PO SCH (10:05)
== END 2020-11-16 10:33 | disposition home or self-care (01) | DRG 772 ==
LOC: YASAS 14:17 → Y3W 14:26 → Y3E 11-10 10:48
PROVIDERS: ADMIT Allergy & Immunology; ATTEND Allergy & Immunology
PROC: HZ42ZZZ Group Counseling for Substance Abuse Treatment, Cognitive-Behavioral (ICD-10-PCS; principal; 2020-10-19)
DX: F10.20 Alcohol dependence, uncomplicated (principal); F10.24 Alcohol dependence with alcohol-induced mood disorder; F10.282 Alcohol dependence with alcohol-induced sleep disorder; F32.9 Major depressive disorder, single episode, unspecified; F43.10 Post-traumatic stress disorder, unspecified; F50.2 Bulimia nervosa; I95.9 Hypotension, unspecified; Y04.2XXA Assault by strike against or bumped into by another person, initial encounter; Y93.89 Activity, other specified; Y92.238 Other place in hospital as the place of occurrence of the external cause; Y99.8 Other external cause status; Z91.011 Allergy to milk products; Z91.410 Personal history of adult physical and sexual abuse; Z68.23 Body mass index [BMI] 23.0-23.9, adult
CPT/HCPCS: 90732; C9803; G0009; U0003